=== PATIENT | female | born 1985 | race Asian ===

== ENCOUNTER 2019-06-22 07:13 | Inpatient (IN) | payer BC ==
[~2019-06-22] VITALS: Ht 157.5 cm; Wt 47.6 kg
[2019-06-22] MEDS: MISOPROSTOL 200MCG TABLET VG SCH ×4 (10:43→23:55)
[2019-06-22] MEDS: LACTATED RINGERS 1,000 ML IV SCH ×2 (10:48→19:26)
[2019-06-22 11:38] LABS: BASOPHILS % 0.5 % (0.0-2.0); HEMATOCRIT. 32.1 % (36.0-48.0); HEMOGLOBIN. 11.4 g/dL (12.0-16.0); LYMPHOCYTES % 21.3 % (20.0-50.0); MEAN CORPUSCULAR HEMOGLOBIN 31.8 pg (28.0-32.0); MEAN CORPUSCULAR VOLUME 89.3 fL (81.0-99.0); MONOCYTES % 5.4 % (2.0-8.0); NEUTROPHILS % 71.8 % (40.0-76.0); PLATELET 258 x1000/uL (130-400); RED BLOOD CELL COUNT 3.59 mill/uL (4.2-5.4); RED CELL DISTRIBUTION WIDTH 13.7 % (11.6-14.6)
[2019-06-22] MEDS: BUTORPHANOL TARTRATE 2 MG/ML VIAL IV PRN (23:56)
[2019-06-23] MEDS: LACTATED RINGERS 1,000 ML IV SCH ×3 (03:16→22:07)
[2019-06-23] MEDS: MISOPROSTOL 200MCG TABLET VG SCH ×5 (04:07→20:00)
[2019-06-23] MEDS: BUTORPHANOL TARTRATE 2 MG/ML VIAL IV PRN ×3 (04:16→12:58)
[2019-06-23 08:41] VITALS: BP 98/50
[2019-06-23] MEDS ORDERED: DEXT 5%/LR + PITOCIN 20UNITS/L 1,000 ML IV SCH ×2 (14:45→23:05)
[2019-06-23 20:08] LABS: HEMATOCRIT 24.6 % (36.0-48.0); HEMOGLOBIN 8.6 g/dL (12.0-16.0); MEAN CORPUSCULAR HEMOGLOBIN 31.4 pg (28.0-32.0); MEAN CORPUSCULAR VOLUME 89.4 fL (81.0-99.0); PLATELET 194 x1000/uL (130-400); RED BLOOD CELL COUNT 2.75 mill/uL (4.2-5.4); RED CELL DISTRIBUTION WIDTH 13.1 % (11.6-14.6)
[2019-06-23] MEDS ORDERED: FENTANYL CITRATE/PF 50MCG/ML 2ML VIAL ONE (22:18)
[2019-06-23] MEDS ORDERED: MIDAZOLAM HCL 2 MG/2 ML VIAL ONE (22:18)
[2019-06-23] MEDS ORDERED: PROPOFOL 200MG/20ML VIAL IV ONE (22:18)
[2019-06-23] MEDS ORDERED: DEXAMETHASONE 4MG/ML 1ML VIAL ONE (22:33)
[2019-06-23] MEDS ORDERED: ONDANSETRON HCL 4MG/2ML INJ ONE (22:33)
[2019-06-23] MEDS ORDERED: MEPERIDINE HCL/PF 25MG/ML CPJ IV PRN (23:00)
[2019-06-23] MEDS ORDERED: ONDANSETRON HCL 4MG/2ML INJ IV PRN (23:00)
[2019-06-23] MEDS ORDERED: LABETALOL 5MG/ML SYR 20 MG/4 ML SYRINGE IV PRN (23:00)
[2019-06-23] MEDS ORDERED: HYDROMORPHONE HCL/PF 2MG/ML CPJ IV PRN (23:00)
[2019-06-23] MEDS ORDERED: GLYCERIN/WITCH HAZEL LEAF MEDICATED PAD TOP PRN (23:15)
[2019-06-23] MEDS ORDERED: HEMORRHOIDAL SUPP PR PRN (23:15)
[2019-06-23] MEDS ORDERED: BENZOCAINE/LANOLIN/ALOE VERA SPRAY TOP PRN (23:15)
[2019-06-23] MEDS ORDERED: BISACODYL 10MG SUPP PR PRN (23:15)
[2019-06-23] MEDS ORDERED: ACETAMINOPHEN WITH CODEINE 300/30MG TABLET PO PRN ×2 (23:15)
[2019-06-23] MEDS ORDERED: IBUPROFEN 400MG TABLET PO PRN (23:15)
[2019-06-24 06:55] LABS: CHLORIDE 110 mEq/L (98-107)
[2019-06-24 07:18] LABS: MEAN CORPUSCULAR VOLUME 88.3 fL (81.0-99.0); MEAN PLATELET VOLUME 7.8 fl (7.4-10.4); PLATELET 158 x1000/uL (130-400); RED BLOOD CELL COUNT 2.24 mill/uL (4.2-5.4); RED CELL DISTRIBUTION WIDTH 13.1 % (11.6-14.6)
[2019-06-24 07:27] LABS: HEMATOCRIT. 19.8 % (36.0-48.0)
[2019-06-24] MEDS: PRENATAL VIT/FE FUMARATE/FA TABLET PO SCH (08:12)
[2019-06-24] MEDS ORDERED: DOCUSATE SODIUM 100MG CAPSULE ONE (08:18)
[2019-06-24] MEDS ORDERED: FERROUS SULFATE 325MG TABLET PO SCH (09:00)
[2019-06-24] MEDS ORDERED: SIMETHICONE 80MG TABLET CHEW PO SCH (09:00)
[2019-06-24] MEDS ORDERED: MAGNESIUM/ALUMINUM HYDROXIDE/SIMETHICONE 30ML UDC PO SCH (09:00)
[2019-06-24 12:56] LABS: PLATELET ESTIMATE NORMAL
[2019-06-24] MEDS: IRON SUCROSE COMPLEX 100 MG/5 ML ML IV SCH (15:23)
[2019-06-24] MEDS: POLYETHYLENE GLYCOL 3350 (17GM) 1 DOSE PACK PO SCH (16:38)
[2019-06-24] MEDS ORDERED: DOCUSATE SODIUM 100MG CAPSULE PO SCH (21:00)
[2019-06-25] MEDS: POLYETHYLENE GLYCOL 3350 (17GM) 1 DOSE PACK PO SCH (08:23)
[2019-06-25] MEDS: PRENATAL VIT/FE FUMARATE/FA TABLET PO SCH (08:23)
[2019-06-25 08:29] LABS: MEAN CORPUSCULAR HEMOGLOBIN 31.7 pg (28.0-32.0); MEAN CORPUSCULAR VOLUME 90.1 fL (81.0-99.0); PLATELET 160 x1000/uL (130-400); RED BLOOD CELL COUNT 1.99 mill/uL (4.2-5.4); RED CELL DISTRIBUTION WIDTH 13.5 % (11.6-14.6)
[2019-06-25] MEDS: IRON SUCROSE COMPLEX 100 MG/5 ML ML IV SCH (08:30)
[2019-06-25 08:35] LABS: HEMOGLOBIN 6.3 g/dL (12.0-16.0)
[2019-06-25] MEDS ORDERED: POLYETHYLENE GLYCOL 3350 (17GM) 1 DOSE PACK PO SCH (09:00)
[2019-06-25 12:10] LABS: BASOPHILS % 0.2 % (0.0-2.0); EOSINOPHILS % 1.3 % (0.0-5.0); LYMPHOCYTES % 23.3 % (20.0-50.0); MEAN CORPUSCULAR HEMOGLOBIN 31.4 pg (28.0-32.0); MEAN CORPUSCULAR VOLUME 90.3 fL (81.0-99.0); MEAN PLATELET VOLUME 7.6 fl (7.4-10.4); MONOCYTES % 5.5 % (2.0-8.0); NEUTROPHILS % 69.7 % (40.0-76.0); PLATELET 159 x1000/uL (130-400); RED BLOOD CELL COUNT 2.05 mill/uL (4.2-5.4); RED CELL DISTRIBUTION WIDTH 13.3 % (11.6-14.6)
[2019-06-25 12:15] LABS: HEMOGLOBIN. 6.4 g/dL (12.0-16.0)
[2019-06-25 12:16] LABS: HEMATOCRIT. 18.5 % (36.0-48.0)
[2019-06-25] MEDS ORDERED: IRON SUCROSE COMPLEX 100 MG/5 ML ML IV SCH (12:45)
== END 2019-06-25 15:00 | disposition home or self-care (01) | DRG 770 ==
LOC: EEVIPCON 09:24 → 8 EST LDRP 09:24
PROVIDERS: ADMIT Obstetrics & Gynecology; ATTEND Obstetrics & Gynecology
PROC: 10907ZC Drainage of Amniotic Fluid, Therapeutic from Products of Conception, Via Natural or Artificial Opening (ICD-10-PCS; 2019-06-23)
PROC: 3E0P7VZ Introduction of Hormone into Female Reproductive, Via Natural or Artificial Opening (ICD-10-PCS; 2019-06-23)
PROC: 10D17ZZ Extraction of Products of Conception, Retained, Via Natural or Artificial Opening (ICD-10-PCS; principal; 2019-06-25)
DX: O03.39 Incomplete spontaneous abortion with other complications (principal); D62 Acute posthemorrhagic anemia; O99.012 Anemia complicating pregnancy, second trimester
CPT/HCPCS: 36415; 85027; 86762; 86850; 86900; 88300; 88307; 88309; J0595; J1100; J2250; J2405; J2590; J2704; J3010; J7120